=== PATIENT | male | born 1995 | race Caucasian/White ===

== ENCOUNTER 2017-05-10 12:17 | Emergency (ER) | payer SELFPAY ==
[2017-05-10 12:52] VITALS: BP 125/82
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
--- NOTE | 2017-05-10 13:54 | RADIOLOGY REPORT (SQ) ---
EXAM DESCRIPTION: KNEE LEFT 4 VIEW COMPLETED DATE/TIME: 05/10/2017 1:28 pm REASON FOR STUDY: left knee pain / injury COMPARISON: None. NUMBER OF VIEWS: Four views. TECHNIQUE: AP, lateral, and both oblique radiographic images acquired of the left knee. LIMITATIONS: None. FINDINGS: MINERALIZATION: Normal. BONES: No acute fracture or dislocation. No worrisome bone lesions. JOINT: Joint spaces well-maintained. SOFT TISSUES: Likely joint fluid. OTHER: No other significant finding. IMPRESSION: No acute fractures. There is likely joint fluid. TECHNICAL DOCUMENTATION: JOB ID: [id number] [employer]- All Rights Reserved
== END 2017-05-10 14:24 | disposition home or self-care (01) ==
LOC: ER 12:17
DX: M25.562 Pain in left knee (principal); X50.1XXA Overexertion from prolonged static or awkward postures, initial encounter; Y93.41 Activity, dancing; Z87.828 Personal history of other (healed) physical injury and trauma
CPT/HCPCS: 99283; 73562; L1830

== ENCOUNTER 2018-02-28 20:30 | Emergency (ER) | payer OTHER ==
[2018-02-28 20:46] VITALS: BP 142/76
--- NOTE | 2018-02-28 22:24 | ER Document Report ---
ED Respiratory Problem - General Chief Complaint: Breathing Difficulty Stated Complaint: SHORTNESS OF BREATH Time Seen by Provider: 02/28/18 21:49 Mode of Arrival: Ambulatory Information source: Patient Notes: Patient states he had cough cold congestion shortness of breath. He states he has had a history of tachycardia enlarged heart and problems with his heart and chest pain since he was in the seventh grade. He states since he had a cough and cold about a week ago his chest pain is gotten worse and has become short of breath. He states his heart rate is too fast sometimes. He states he wanted to be checked out for his chest pain. TRAVEL OUTSIDE OF THE [place] 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 Short of Breath: Mild Cough: Nonproductive Sputum amount: None Associated symptoms: Chest pain/discomfort, Congestion, Cough, PND, Runny nose, Sinus pain/pressure, Short of breath Similar symptoms previously: Yes Recently seen / treated by doctor: Yes - Related Data Allergies/Adverse Reactions: No Known Allergies Allergy (Unverified 05/10/17 12:18) Past Medical History - General Information source: Patient - Social History Smoking Status: Former Smoker Cigarette use (# per day): No Chew tobacco use (# tins/day): No Smoking Education Provided: No Frequency of alcohol use: Social Drug Abuse: None 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: Student Lives with: Spouse/Significant other Family History: DM, Hypertension Patient has suicidal ideation: No Patient has homicidal ideation: No - Past Medical History Cardiac Medical History: Reports: Other - He states tachycardia and enlarged heart, EKG is a 61 chest x-ray is negati Pulmonary Medical History: Reports: None EENT Medical History: Reports: None Neurological Medical History: Reports: None Endocrine Medical History: Reports: None Renal/ Medical History: Reports: None Malignancy Medical History: Reports None GI Medical History: Reports: None Musculoskeletal Medical History: Reports Hx Musculoskeletal Trauma Skin Medical History: Reports None Psychiatric Medical History: Reports: None Traumatic Medical History: Reports: Hx Fractures - right hand scaphoid Infectious Medical History: Reports: None Surgical Hx: Negative Past Surgical History: Reports: None - Immunizations Immunizations up to date: Yes Hx Diphtheria, Pertussis, Tetanus Vaccination: Yes Review of Systems - Review of Systems Notes: REVIEW OF SYSTEMS: CONSTITUTIONAL : Denies fever, chills, or sweats. Denies recent illness. EENT: Complains of nasal and sinus congestion no discharge. Denies eye, ear, throat, or mouth pain or symptoms. Denies throat, tongue, or mouth swelling or difficulty swallowing. CARDIOVASCULAR: States he has chest pain like he has been having it since he was in the seventh grade and a fast heartbeat. Denies ankle edema. RESPIRATORY: Cough cold congestion shortness of breath GASTROINTESTINAL: Denies abdominal pain or distention. Denies nausea, vomiting , or diarrhea. Denies blood in vomitus, stools, or per rectum. Denies black, tarry stools. Denies constipation. GENITOURINARY: Denies difficulty urinating, painful urination, burning, frequency, blood in urine, or discharge. MUSCULOSKELETAL: Denies back or neck pain or stiffness. Denies joint pain or swelling. SKIN: Denies rash, lesions or sores. HEMATOLOGIC : Denies easy bruising or bleeding. LYMPHATIC: Denies swollen, enlarged glands. NEUROLOGICAL: Denies confusion or altered mental status. Denies passing out or loss of consciousness. Denies dizziness or lightheadedness. Denies headache. Denies weakness or paralysis or loss of use of either side. Denies problems with gait or speech. Denies sensory loss, numbness, or tingling. Denies seizures. PSYCHIATRIC: Denies anxiety or stress. Denies depression, suicidal ideation, or homicidal ideation. ALL OTHER SYSTEMS REVIEWED AND NEGATIVE. Dictation was performed using [employer] voice recognition software PHYSICAL EXAMINATION: GENERAL: Well-appearing, well-nourished and in no acute distress. HEAD: Atraumatic, normocephalic. EYES: Pupils equal round and reactive to light, extraocular movements intact, sclera anicteric, conjunctiva are normal. ENT: Swollen nasal turbinates with clear drainage, nasal drip. Moist mucous membranes. NECK: Normal range of motion, supple without lymphadenopathy LUNGS: Breath sounds clear to auscultation bilaterally and equal. No wheezes rales or rhonchi. HEART: Regular rate and rhythm without murmurs EKG shows rate of 61 regular sinus rhythm. Chest x-ray does not show an enlarged heart ABDOMEN: Soft, nontender, nondistended abdomen. No guarding, no rebound. No masses appreciated. Musculoskeletal: Normal range of motion, no pitting or edema. No cyanosis. NEUROLOGICAL: Cranial nerves grossly intact. Normal speech, normal gait. Normal sensory, motor exams PSYCH: Normal mood, normal affect. SKIN: Warm, Dry, normal turgor, no rashes or lesions noted. Physical Exam - Vital signs Vitals: Temp Pulse Resp BP Pulse Ox 98.3 F 93 20 142/76 H 95 02/28/18 20:44 02/28/18 20:44 02/28/18 20:44 02/28/18 20:44 02/28/18 20:44 Course - Vital Signs Vital signs: Temp Pulse Resp BP Pulse Ox 98.3 F 68 11 L 142/76 H 98 02/28/18 20:44 02/28/18 22:27 02/28/18 22:27 02/28/18 20:44 02/28/18 22:27 - Diagnostic Test Radiology reviewed: Image reviewed, Reports reviewed Discharge - Discharge Clinical Impression: URI (upper respiratory infection) Qualifiers: URI type: unspecified URI Qualified Code(s): J06.9 - Acute upper respiratory infection, unspecified Condition: Stable Disposition: HOME, SELF-CARE Additional Instructions: UPPER RESPIRATORY ILLNESS: You have a viral infection of the respiratory passages -- a "cold." This common infection causes nasal congestion, drainage, and often sore throat and cough. It is highly contagious. The disease usually lasts about 10 to 14 days. There is no "cure" for the viral infection -- it must run its course. If there is a complication, such as bacterial infection in the nose, sinuses, middle ear, or bronchial tubes, antibiotics may be required. The antibiotics won't affect the virus. Drink plenty of fluids. A humidifier may help. An expectorant medication or decongestant may make you more comfortable. Use acetaminophen or ibuprofen for fever or aches. See the doctor if fever persists over two days, if there is any significant worsening of your symptoms, or if you simply fail to improve as expected. COUGH-SUPPRESSANT & EXPECTORANT MEDICATION: You are to use a cough medication as needed for relief of symptoms. This medicine is a combination of an expectorant (to make the mucous thinner and more easily "coughed up") and a cough suppressant (to reduce the frequency of coughing). The cough-suppressant medicine is related to narcotics. You may experience mild nausea and sleepiness. Some patients who are very sensitive to narcotics may have stomach pain from this medicine. Taking the medicine with food reduces these side effects. Do not drive or work with machinery until you know how this medicine affects you. The expectorant should have no side effects. Iodine-containing expectorants (such as organidin) should not be taken by persons with active thyroid disease unless approved by your doctor. Call the doctor if you develop shortness of breath, hives, rash, itching, lightheadedness, or severe nausea and vomiting. USE OF ACETAMINOPHEN (Tylenol): Acetaminophen may be taken for pain relief or fever control. It's much safer than aspirin, offering a wider range of "safe" dosages. It is safe during . Some brand names are Tylenol, Panadol, Datril, Anacin 3, Tempra, and Liquiprin. Acetaminophen can be repeated every four hours. The following are maximum recommended dosages: >89 pounds or adults 650 mg to 900 mg Acetaminophen can be repeated every four hours. Maximum dose not to exceed 4000 mg a day. The ekg and chest xray results were given to you to follow up with primary md. FOLLOW-UP CARE: If you have been referred to a physician for follow-up care, call the physician s office for an appointment as you were instructed or within the next two days. If you experience worsening or a significant change in your symptoms, notify the physician immediately or return to the Emergency Department at any time for re-evaluation. Forms: Elevated Blood Pressure
--- NOTE | 2018-02-28 22:31 | RADIOLOGY REPORT (SQ) ---
EXAM DESCRIPTION: XR CHEST 2 VIEWS COMPLETED DATE/TME: 02/28/2018 21:50 CLINICAL HISTORY: 22 years, Male, cough congestion short of breath COMPARISON: None. NUMBER OF VIEWS: 2 TECHNIQUE: Frontal and lateral views of the chest LIMITATIONS: None. FINDINGS: The heart size is normal. Lungs are clear. No pneumothorax IMPRESSION: Negative chest 2010 [facility]- All Rights Reserved
--- NOTE | 2018-03-01 10:02 | EKG REPORT ---
SEVERITY:- NORMAL ECG - SINUS RHYTHM : Confirmed by: Scott Mims 01-Mar-2018 10:02:16
== END 2018-02-28 23:53 | disposition home or self-care (01) ==
LOC: ER 20:30
DX: J06.9 Acute upper respiratory infection, unspecified (principal); R06.00 Dyspnea, unspecified; R06.02 Shortness of breath; Z87.891 Personal history of nicotine dependence
CPT/HCPCS: 71046; 93005; 93010; 99285

== ENCOUNTER 2018-07-04 23:28 | Emergency (ER) | payer OTHER ==
[2018-07-05 00:05] VITALS: BP 147/81
--- NOTE | 2018-07-05 01:17 | ER Document Report ---
HPI - HPI Time Seen by Provider: 07/05/18 00:53 Pain Level: 4 Context: Patient is a 22-year-old male that comes to the emergency department for chief complaint of right-sided chest pain. He states it is not a very specific location in his mid chest above the breast. This is worse with movements. He denies difficulty breathing, nausea or vomiting, fever, or any obvious injury. 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 He is right-handed. He also states that he has had episodes where he will wake suddenly as if he stops breathing in his sleep. He denies smoking, recreational drugs, frequent alcohol use, or any diagnosed medical problems. Past Medical History - General Information source: Patient - Social History Smoking Status: Never Smoker Chew tobacco use (# tins/day): Yes - Discussed cessation, less than 3 minutes Frequency of alcohol use: Occasional Drug Abuse: None Lives with: Friend Family History: DM, Hypertension Renal/ Medical History: Denies: Hx Peritoneal Dialysis Musculoskeletal Medical History: Reports Hx Musculoskeletal Trauma Psychiatric Medical History: Reports: Hx Anxiety Traumatic Medical History: Reports: Hx Fractures - right hand scaphoid Surgical Hx: Negative - Immunizations Immunizations up to date: Yes Hx Diphtheria, Pertussis, Tetanus Vaccination: Yes Vertical Provider Document - CONSTITUTIONAL General Appearance: WD/WN, No Apparent Distress - INFECTION CONTROL TRAVEL OUTSIDE OF THE [place] IN LAST 30 DAYS: No - HEENT HEENT: Atraumatic, Normocephalic - NECK Neck: Normal Inspection - RESPIRATORY Respiratory: Breath Sounds Normal, No Respiratory Distress. negative: Chest Non-Tender - Tender over the right pectoral muscle, this is specific and reproducible, worse with movement. - CARDIOVASCULAR Cardiovascular: Regular Rate, Regular Rhythm - GI/ABDOMEN Gastrointestinal: Abdomen Soft, Abdomen Non-Tender - BACK Back: Normal Inspection - MUSCULOSKELETAL/EXTREMETIES Musculoskeletal/Extremeties: MAEW, FROM, Non-Tender - NEURO Level of Consciousness: Awake, Alert, Appropriate - DERM Integumentary: Warm, Dry, No Rash Course - Re-evaluation Re-evalutation: EKG sinus rhythm with no acute T wave inversions or ST segment changes in consecutive leads. QTC and OR interval are unremarkable. Chest x-ray unremarkable. On examination patient has pain with palpation and movement of the right pectoral muscle. Appears to be musculoskeletal pain in nature. Patient states that he sometimes wakes up in the middle of the night gasping, I did recommend a polysomnography test. She also has nightmares and occasional anxiety and panic attacks. He states he has started citalopram, he states he is doing much better since this, he denies SI or HI, he states that he wants something to take as needed for panic attacks. He states these are very occasional. After discussion he was provided with Vistaril. Vital signs unremarkable. Based on his evaluation, workup, I have very low suspicion of aortic dissection, pulmonary embolism, ACS, or other acute intrathoracic etiology. Provided with muscle relaxer. Discussed expectations and return precautions. Patient states he has good follow-up. Patient states understanding and agreement. - Vital Signs Vital signs: Temp Pulse Resp BP Pulse Ox 98.8 F 69 16 147/81 H 100 07/05/18 00:03 07/05/18 00:03 07/05/18 00:03 07/05/18 00:03 07/05/18 00:03 Discharge - Discharge Clinical Impression: Chest wall pain, Anxiety Condition: Stable Disposition: HOME, SELF-CARE Additional Instructions: Your chest x-ray, EKG, evaluation do not show any concerning findings. Your pain is consistent with pain of the pectoralis muscle. This can take time to resolve. Apply heat to the area, take [id number] anti-inflammatory, you can take prescribed muscle relaxer if needed. For anxiety/panic attack you can take the Vistaril as needed, continue your cur rent medication, follow-up with primary care for additional management and adjustment. Return for any concerning symptoms including passing out, vomiting, difficulty breathing, severe worsening pain, fever, or something is not right. Prescriptions: Hydroxyzine Pamoate [Vistaril 25 mg Capsule] 1 - 2 cap PO Q6 PRN #30 capsule PRN Reason: Methocarbamol [Robaxin-750] 750 mg PO QID PRN #20 tablet PRN Reason:
--- NOTE | 2018-07-05 02:24 | RADIOLOGY REPORT (SQ) ---
EXAM DESCRIPTION: XR CHEST 2 VIEWS COMPLETED DATE/TME: 07/05/2018 01:16 CLINICAL HISTORY: 22 years, Male, right sided chest pain Comparison: None FINDINGS: No focal lung consolidation. No pleural effusion. No pneumothorax. Cardiac and mediastinal silhouette is unremarkable. No acute osseous abnormality. Soft tissues are unremarkable. IMPRESSION: No acute findings. No focal lung consolidation.
--- NOTE | 2018-07-05 17:20 | EKG REPORT ---
SEVERITY:- NORMAL ECG - SINUS RHYTHM : Confirmed by: Scott Mims 05-Jul-2018 17:19:09
== END 2018-07-05 02:56 | disposition home or self-care (01) ==
LOC: ER 23:28
DX: F41.9 Anxiety disorder, unspecified (principal); R07.89 Other chest pain
CPT/HCPCS: 71046; 93005; 93010; 99283

== ENCOUNTER 2018-09-10 17:52 | Emergency (ER) | payer OTHER ==
--- NOTE | 2018-09-10 18:08 | ER Document Report ---
ED Medical Screen (RME) - General Chief Complaint: Chest Wall Pain Stated Complaint: CHEST PAIN Time Seen by Provider: 09/10/18 18:02 Primary Care Provider: YULISSA LEIJA [Primary Care Provider] - Follow up as needed Mode of Arrival: Ambulatory Information source: Patient Notes: 22-year-old male presented to ED for complaint of the whole left side of his chest hurting. States he also has numbness down his left arm down to his fingers and his whole left side of his torso. He states he has been seen multiple times for this pain. He is not anxious he is not lifted anything he does not know why he continues to have this pain and numbness. Patient is alert and oriented respirations regular and unlabored lungs are clear to auscultation. I have greeted and performed a rapid initial assessment of this patient. A comprehensive ED assessment and evaluation of the patient, analysis of test results and completion of medical decision making process will be conducted by an additional ED providers. Dictation of this chart was performed using voice recognition software; therefore, there may be some unintended grammatical errors. TRAVEL OUTSIDE OF THE [place] IN LAST 30 DAYS: No - Related Data Allergies/Adverse Reactions: No Known Allergies Allergy (Verified 09/10/18 17:54) Past Medical History Renal/ Medical History: Denies: Hx Peritoneal Dialysis Musculoskeltal Medical History: Reports Hx Musculoskeletal Trauma Psychiatric Medical History: Reports: Hx Anxiety Traumatic Medical History: Reports: Hx Fractures - right hand scaphoid - Immunizations Immunizations up to date: Yes Hx Diphtheria, Pertussis, Tetanus Vaccination: Yes Physical Exam - Vital signs Vitals: Temp Pulse Resp BP Pulse Ox 98.3 F 91 16 162/85 H 97 09/10/18 17:57 09/10/18 17:57 09/10/18 17:57 09/10/18 17:57 09/10/18 17:57 Course - Vital Signs Vital signs: Temp Pulse Resp BP Pulse Ox 98.3 F 91 16 162/85 H 97 09/10/18 17:57 09/10/18 17:57 09/10/18 17:57 09/10/18 17:57 09/10/18 17:57 Doctor's Discharge - Discharge Referrals: HELADIO,YULISSA [Primary Care Provider] - Follow up as needed
[2018-09-10 18:52] LABS: ABSOLUTE EOSINOPHILS # (AUTO) 0.4 10^3/uL (0.0-0.6); ABSOLUTE NEUT (AUTO) 6.7 10^3/uL (1.7-8.2); BASOPHILS % (AUTO) 0.3 % (0-2); EOSINOPHILS % (AUTO) 3.2 % (0-6); HEMATOCRIT 49.5 % (37.9-51.0); HEMOGLOBIN 16.7 g/dL (13.5-17.0); LYMPHOCYTES % (AUTO) 32.8 % (13-45); MEAN CORPUSCULAR HEMOGLOBIN 30.2 pg (27.0-33.4); MEAN CORPUSCULAR HGB CONC 33.8 g/dL (32.0-36.0); MEAN CORPUSCULAR VOLUME 89 fl (80-97); MONOCYTES % (AUTO) 8.5 % (3-13); PLATELET COUNT 314 10^3/uL (150-450); RED BLOOD COUNT 5.54 10^6/uL (4.35-5.55); RED CELL DISTRIBUTION WIDTH 13.3 % (11.5-14.0); SEGMENTED NEUTROPHILS % (AUTO) 55.2 % (42-78); TOTAL CELLS COUNTED % (AUTO) 100 %; WHITE BLOOD COUNT 12.2 10^3/uL (4.0-10.5)
[2018-09-10 19:06] LABS: ALANINE AMINOTRANSFERASE 48 U/L (21-72); ALBUMIN 4.4 g/dL (3.5-5.0); ALKALINE PHOSPHATASE 83 U/L (38-126); ANION GAP 13 (5-19); ASPARTATE AMINO TRANSFERASE 26 U/L (17-59); BILIRUBIN,DIRECT 0.2 mg/dL (0.0-0.4); BILIRUBIN,TOTAL 0.5 mg/dL (0.2-1.3); BLOOD UREA NITROGEN 7 mg/dL (7-20); CALCIUM 9.5 mg/dL (8.4-10.2); CARBON DIOXIDE 26 mmol/L (22-30); CHLORIDE 103 mmol/L (98-107); GLUCOSE 80 mg/dL (75-110); POTASSIUM 4.1 mmol/L (3.6-5.0); SODIUM 142.1 mmol/L (137-145)
--- NOTE | 2018-09-10 19:13 | RADIOLOGY REPORT (SQ) ---
EXAM DESCRIPTION: CHEST SINGLE VIEW COMPLETED DATE/TIME: 09/10/2018 6:49 pm REASON FOR STUDY: cp COMPARISON: 07/05/2018 EXAM PARAMETERS: NUMBER OF VIEWS: One view. TECHNIQUE: Single frontal radiographic view of the chest acquired. RADIATION DOSE: NA LIMITATIONS: None. FINDINGS: LUNGS AND PLEURA: No opacities, masses or pneumothorax. No pleural effusion. MEDIASTINUM AND HILAR STRUCTURES: No masses. Contour normal. HEART AND VASCULAR STRUCTURES: Heart normal in size. Normal vasculature. BONES: No acute findings. HARDWARE: None in the chest. OTHER: No other significant finding. IMPRESSION: NO ACUTE RADIOGRAPHIC FINDING IN THE CHEST. TECHNICAL DOCUMENTATION: JOB ID: [id number] [employer]- All Rights Reserved Reading location - IP/workstation name: [email or web address]
[2018-09-10 19:18] LABS: CREATINE KINASE MB 0.51 ng/mL (<4.55)
[2018-09-10 19:20] LABS: TROPONIN I < 0.012 ng/mL
--- NOTE | 2018-09-10 19:49 | EKG REPORT ---
SEVERITY:- NORMAL ECG - SINUS RHYTHM : Confirmed by: Scott Mims 10-Sep-2018 19:48:35
[2018-09-10] MEDS ORDERED: KETOROLAC TROMETHAMINE 60 MG/2 ML SDV IM ONE (20:07)
[2018-09-10] MEDS ORDERED: LIDOCAINE 5% (700 MG) TRANSDERMAL ADH..PATCH TP ONE (20:07)
--- NOTE | 2018-09-10 20:07 | ER Document Report ---
ED General - General Chief Complaint: Chest Wall Pain Stated Complaint: CHEST PAIN Time Seen by Provider: 09/10/18 18:02 Primary Care Provider: YULISSA LEIJA [Primary Care Provider] - Follow up as needed Mode of Arrival: Ambulatory Notes: Patient is a 22-year-old male without chronic medical problems who presents with approximately 12 hours of continuous left-sided chest discomfort with associated left arm pain and numbness. Patient states that he has had recurrent similar chest pains over the last several years. States that he has been seen by his primary care doctor during the [employer] time as well as here in the emergency department without any diagnoses for his pain. States that the pain seems to come on randomly without obvious triggering factor and goes away spontaneously. Describes as a sharp, shooting, burning pain over the left portion of his chest and into the left trapezius, left periscapular region and radiating down his left arm with associated numbness over the left forearm and into the left hand. States that symptoms have diminished somewhat since onset without intervention. Denies true loss of sensation or weakness. Denies history of DVT or pulmonary embolus. Denies history of aortic pathology. No history of connective tissue disorders. Has not seen his primary care physician today regarding his concerns. TRAVEL OUTSIDE OF THE [place] IN LAST 30 DAYS: No - Related Data Allergies/Adverse Reactions: No Known Allergies Allergy (Verified 09/10/18 17:54) Past Medical History - General Information source: Patient - Social History Smoking Status: Never Smoker Chew tobacco use (# tins/day): No Frequency of alcohol use: Social Drug Abuse: None Lives with: Friend Family History: DM, Hypertension Patient has suicidal ideation: No Patient has homicidal ideation: No Renal/ Medical History: Denies: Hx Peritoneal Dialysis Musculoskeletal Medical History: Reports Hx Musculoskeletal Trauma Psychiatric Medical History: Reports: Hx Anxiety Traumatic Medical History: Reports: Hx Fractures - right hand scaphoid - Immunizations Immunizations up to date: Yes Hx Diphtheria, Pertussis, Tetanus Vaccination: Yes Review of Systems - Review of Systems Notes: Constitutional: Negative for fever. HENT: Negative for sore throat. Eyes: Negative for visual changes. Cardiovascular: Positive for chest pain. Respiratory: Negative for shortness of breath. Gastrointestinal: Negative for abdominal pain, vomiting or diarrhea. Genitourinary: Negative for dysuria. Musculoskeletal: Negative for back pain. Skin: Negative for rash. Neurological: Negative for headaches, weakness or numbness. 10 point ROS negative except as marked above and in HPI. Physical Exam - Vital signs Vitals: Temp Pulse Resp BP Pulse Ox 98.3 F 91 16 162/85 H 97 09/10/18 17:57 09/10/18 17:57 09/10/18 17:57 09/10/18 17:57 09/10/18 17:57 Interpretation: Hypertensive Notes: PHYSICAL EXAMINATION: GENERAL: Well-appearing, well-nourished and in no acute distress. HEAD: Atraumatic, normocephalic. EYES: Pupils equal round and reactive to light, extraocular movements intact, sclera anicteric, conjunctiva are normal. ENT: nares patent, oropharynx clear without exudates. Moist mucous membranes. NECK: Normal range of motion, supple without lymphadenopathy LUNGS: Breath sounds clear to auscultation bilaterally and equal. No wheezes rales or rhonchi. HEART: Regular rate and rhythm without murmurs ABDOMEN: Soft, nontender, normoactive bowel sounds. No guarding, no rebound. No masses appreciated. EXTREMITIES: Normal range of motion, no pitting or edema. No cyanosis. NEUROLOGICAL: Face symmetric. Tongue protrudes midline. Extraocular motions intact. Pupils are 2 mm and equally reactive. Normal speech, normal gait. 5 out of 5 strength in both the distal and proximal upper and lower extremities bilaterally. Sensation is grossly intact throughout. Finger to nose testing normal. Pronator drift normal. PSYCH: Normal mood, normal affect. SKIN: Warm, Dry, normal turgor, no rashes or lesions noted. Course - Re-evaluation Re-evalutation: 09/10/18 20:05 Patient presents with signs and symptoms most consistent with a cervical nerve root impingement likely at C6-7. Has had the symptoms are currently over the past 4 to 5 years. Patient presents with acute onset of pain into the shoulder, neck, and radiation of pain into the extremity. Patient also reports of some du llness over the forearm as well as into the hand itself. On neurologic exam patient has 5 out of 5 biceps and triceps strength. RMU motor and sensory distribution including against resistance on motor testing is noted to be normal. 2+ radial pulse and capillary refill is less than 1 second in all digits. Laboratories including troponin have been obtained given associated chest discomfort and are noted to be unremarkable. EKG likewise unremarkable. Patient has had improvement of symptoms after receiving analgesia here in the emergency department. PERC criteria negative. advised supportive pillow for sleep at night, have treated with NSAIDs. At this time will discharge with return precautions and follow-up recommendations. Verbal discharge instructions given a the bedside and opportunity for questions given. Medication warnings reviewed. Patient is in agreement with this plan and has verbalized understanding of return precautions and the need for primary care follow-up in the next 24-72 hours. 09/10/18 20:06 - Vital Signs Vital signs: Temp Pulse Resp BP Pulse Ox 98.5 F 91 16 136/75 H 96 09/10/18 20:31 09/10/18 17:57 09/10/18 20:31 09/10/18 20:31 09/10/18 20:31 - Laboratory Result Diagrams: 09/10/18 18:29 09/10/18 18:29 Laboratory results interpreted by me: 09/10/18 18:29 WBC 12.2 H - Diagnostic Test Radiology reviewed: Image reviewed, Reports reviewed Radiology results interpreted by me: 09/10/18 20:06 Chest x-ray: No acute infiltrate or pneumothorax - EKG Interpretation by Me Additional EKG results interpreted by me: 09/10/18 20:06 Sinus rhythm, rate 76. No ST elevations or depressions. QTC is 423. Discharge - Discharge Clinical Impression: Recurrent chest pain, Cervical nerve root impingement Condition: Good Disposition: HOME, SELF-CARE Additional Instructions: Your pain is related to impingement one of your cervical nerve roots and will take 6-8 weeks completely resolved. For your pain: Take ibuprofen 600 mg and acetaminophen 1000 mg every 6 hours together as needed for pain. In addition to this, purchased the product that is sold [id number] cold Aspercreme with lidocaine. Apply to the affected area per bottle instructions. You should also apply heat to the area regularly using an electric heating pad. Return to the emergency department immediately if you develop weakness, loss of sensation, chest pain, shortness of breath, have worsening of your symptoms, or any other symptoms that are worrisome to you. Referrals: [facility] [Primary [facility] Provider] - Follow up as needed
[2018-09-10 20:40] VITALS: BP 136/75
== END 2018-09-10 20:40 | disposition home or self-care (01) ==
LOC: ER 17:52
DX: M54.12 Radiculopathy, cervical region (principal); R07.89 Other chest pain; M79.602 Pain in left arm; R20.0 Anesthesia of skin
CPT/HCPCS: 93005; 99284; 96372; 36415; 82553; 85025; 80053; 84484; 71045; 93010; J1885

== ENCOUNTER 2018-10-20 01:36 | Emergency (ER) | payer OTHER ==
[2018-10-20 01:42] VITALS: BP 134/80
== END 2018-10-20 04:41 | disposition left against medical advice (07) ==
LOC: ER 01:36
DX: Z53.21 Procedure and treatment not carried out due to patient leaving prior to being seen by health care provider (principal)